=== PATIENT | male | born 1935 | race Two or more races ===

== ENCOUNTER 2018-04-11 17:48 | Emergency (ER) | payer MEDICARE ==
[~2018-04-11] VITALS: Ht 177.8 cm; Wt 90.7 kg
[2018-04-11] MEDS ORDERED: Cefepime HCl 1 GM in NS 55 ML IV SCH (18:15)
--- NOTE | 2018-04-11 18:38 | Diagnostic Imaging Report ---
EXAM: XR Chest, 1 View CLINICAL HISTORY: SOB TECHNIQUE: Frontal view of the chest. COMPARISON: No relevant prior studies available. FINDINGS: Lungs: Unremarkable. No consolidation. Pleural space: Unremarkable. No pneumothorax. Heart: Unremarkable. Mild cardiomegaly. Mediastinum: Unremarkable. Bones/joints: Unremarkable. IMPRESSION: No acute cardiopulmonary disease.
[2018-04-11 18:49] LABS: APPEARANCE,URINE CLEAR; BILIRUBIN, URINE NEGATIVE (NEGATIVE); GLUCOSE, URINE (UA) NEGATIVE (NEGATIVE); KETONES,URINE 1+ (NEGATIVE); LEUKOCYTE ESTERASE ,URINE 1+ (NEGATIVE); NITRITE,URINE NEGATIVE (NEGATIVE); PH,URINE 5 (4.5-8.0); PROTEIN,URINE 1+ (NEGATIVE); UROBILINOGEN,URINE NORMAL MG/DL (0.0-1.0)
[2018-04-11 18:54] LABS: BASOPHILS % (AUTO) 1.9 % (0.0-2.0); EOSINOPHILS % (AUTO) 0.5 % (0.0-3.0); HEMATOCRIT 41.9 % (42.0-52.0); LYMPHOCYTES % (AUTO) 19.4 % (20.0-45.0); MEAN CORPUSCULAR VOLUME 93 FL (80-99); MONOCYTES % (AUTO) 5.7 % (1.0-10.0); NEUTROPHILS % (AUTO) 72.5 % (45.0-75.0); PLATELET COUNT 196 K/UL (150-450); RED BLOOD COUNT 4.51 M/UL (4.70-6.10); RED CELL DISTRIBUTION WIDTH 13.4 % (11.6-14.8)
[2018-04-11 18:57] LABS: ANION GAP 10 mmol/L (5-15); BLOOD UREA NITROGEN 20 mg/dL (7-18); CALCIUM 8.7 MG/DL (8.5-10.1); CARBON DIOXIDE 25 MMOL/L (21-32); CHLORIDE 111 MMOL/L (98-107); CREATININE 0.9 MG/DL (0.55-1.30); POTASSIUM 4.4 MMOL/L (3.5-5.1); SODIUM 146 MMOL/L (136-145)
[2018-04-11 18:59] LABS: COLOR,URINE YELLOW
[2018-04-11 19:00] VITALS: BP 96/50
[2018-04-11 19:10] LABS: ALANINE AMINOTRANSFERASE 27 U/L (12-78); ALBUMIN 3.4 G/DL (3.4-5.0); ALKALINE PHOSPHATASE 93 U/L (46-116); ASPARTATE AMINO TRANSFERASE 18 U/L (15-37); BILIRUBIN,TOTAL 0.3 MG/DL (0.2-1.0); CKMB < 0.5 NG/ML (0.0-3.6); CREATINE KINASE 61 U/L (26-308); PHOSPHORUS 2.9 MG/DL (2.5-4.9)
[2018-04-11] MEDS ORDERED: TAMSULOSIN HCL0.4 MG ORAL (19:14)
[2018-04-11] MEDS ORDERED: DOCUSATE SODIU100 MG ORAL (19:14)
[2018-04-11] MEDS ORDERED: METOPROLOL TART25 MG ORAL (19:14)
[2018-04-11] MEDS ORDERED: OMEGA 3 1,0001 EACH PO (19:14)
[2018-04-11] MEDS ORDERED: SENNA LAXATIVE8.6 MG PO (19:14)
[2018-04-11] MEDS ORDERED: PLAVIX75 MG ORAL (19:14)
[2018-04-11] MEDS ORDERED: LINZESS290 MCG PO (19:14)
[2018-04-11] MEDS ORDERED: DULCOLAX10 MG RC (19:14)
[2018-04-11] MEDS ORDERED: AMLODIPINE BESYL5 MG ORAL (19:14)
[2018-04-11] MEDS ORDERED: LISINOPRIL40 MG ORAL (19:14)
[2018-04-11] MEDS ORDERED: PROSCAR5 MG ORAL (19:14)
[2018-04-11] MEDS ORDERED: PENLAC6.6 M1 TP (19:14)
[2018-04-11] MEDS ORDERED: LACTULOSE20 GM/301 ORAL (19:14)
[2018-04-11] MEDS ORDERED: BUPROPION XL150 MG ORAL (19:14)
[2018-04-11] MEDS ORDERED: LIPITOR40 MG ORAL (19:14)
[2018-04-11] MEDS ORDERED: FUROSEMIDE40 MG ORAL (19:14)
[2018-04-11] MEDS ORDERED: CENTRUM SILVER1 EAC4 PO (19:14)
[2018-04-11] MEDS ORDERED: ASCORBIC ACID500 MG ORAL (19:14)
[2018-04-11] MEDS ORDERED: MIRTAZAPINE30 MG ORAL (19:14)
[2018-04-11] MEDS ORDERED: MIRALAX17 G2 ORAL (19:14)
[2018-04-11] MEDS ORDERED: COQ1050 MG PO (19:14)
[2018-04-11] MEDS ORDERED: POTASSIUM CHLO10 MEQ ORAL (19:14)
[2018-04-11] MEDS ORDERED: ACETAMINOPHEN325 M1 ORAL (19:14)
[2018-04-11 20:00] VITALS: BP 98/50
[2018-04-11] MEDS ORDERED: Sodium Chloride 500ML 500 ML IV ONE (20:30)
[2018-04-11 21:00] VITALS: BP 91/52
[2018-04-11 21:59] VITALS: BP 101/55
[2018-04-11 23:00] VITALS: BP 102/53
--- NOTE | 2018-04-11 23:09 | Emergency Room Report ---
History of Present Illness General Chief Complaint: Fever Source: EMS Present Illness HPI Patient is an 82-year-old male brought in by EMS after increased generalized weakness. 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 The reportedly had been having bowel movements yesterday. He had not been vomiting. He was noted to have fever up to 102 by EMS. The patient reportedly was in a hot environment. 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 Review of Systems All Other Systems: negative except mentioned in HPI Physical Exam Vital Signs Date Time Temp Pulse Resp B/P (MAP) Pulse Ox O2 Delivery O2 Flow Rate FiO2 04/11/18 17:44 102.1 106 16 127/71 95 Room Air 102.0 General Appearance: obese, Chronically Ill ENT: normal pharynx Neck: full range of motion, supple Respiratory: chest non-tender, lungs clear, normal breath sounds Gastrointestinal: non tender, soft Musculoskeletal: normal inspection Neurologic: normal inspection, alert, oriented x3, responsive, 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 Differential diagnosis included was not limited to anemia, urinary tract infection, electrolyte abnormality, hypothyroidism, myocardial infarction, myasthenia gravis, dehydration, among others. Because of complexity of patient's case laboratory testing and imaging studies were ordered. The laboratory testing showed the normal white blood count. The patient was noted to have a minimal urinary tract infection. The patient was started on IV fluids. He was noted to be somewhat hypotensive initially. Patient was also noted to be febrile. Patient was given IV antibiotics after blood cultures are obtained.This may be related to the environmental heat however this is unclear at this time. Patient was discussed with Dr. Del Valle for [facility] the patient will be transferred for continuity care. Labs Test 04/11/18 18:25 White Blood Count 9.0 K/UL (4.8-10.8) Red Blood Count 4.51 M/UL (4.70-6.10) Hemoglobin 14.0 G/DL (14.2-18.0) Hematocrit 41.9 % (42.0-52.0) Mean Corpuscular Volume 93 FL (80-99) Mean Corpuscular Hemoglobin 31.2 PG (27.0-31.0) Mean Corpuscular Hemoglobin Concent 33.5 G/DL (32.0-36.0) Red Cell Distribution Width 13.4 % (11.6-14.8) Platelet Count 196 K/UL (150-450) Mean Platelet Volume 7.5 FL (6.5-10.1) Neutrophils (%) (Auto) 72.5 % (45.0-75.0) Lymphocytes (%) (Auto) 19.4 % (20.0-45.0) Monocytes (%) (Auto) 5.7 % (1.0-10.0) Eosinophils (%) (Auto) 0.5 % (0.0-3.0) Basophils (%) (Auto) 1.9 % (0.0-2.0) Urine Color Yellow Urine Appearance Clear Urine pH 5 (4.5-8.0) Urine Specific [place] 1.020 (1.005-1.035) Urine Protein 1+ (NEGATIVE) Urine Glucose (UA) Negative (NEGATIVE) Urine Ketones 1+ (NEGATIVE) Urine Occult Blood Negative (NEGATIVE) Urine Nitrite Negative (NEGATIVE) Urine Bilirubin Negative (NEGATIVE) Urine Urobilinogen Normal MG/DL (0.0-1.0) Urine Leukocyte Esterase 1+ (NEGATIVE) Urine RBC 0-2 /HPF (0 - 0) Urine WBC 2-4 /HPF (0 - 0) Urine Squamous Epithelial Cells Few /LPF (NONE/OCC) Urine Bacteria Few /HPF (NONE) Sodium Level 146 MMOL/L (136-145) Potassium Level 4.4 MMOL/L (3.5-5.1) Chloride Level 111 MMOL/L (98-107) Carbon Dioxide Level 25 MMOL/L (21-32) Anion Gap 10 mmol/L (5-15) Blood Urea Nitrogen 20 mg/dL (7-18) Creatinine 0.9 MG/DL (0.55-1.30) Estimat Glomerular Filtration Rate mL/min (>60) Glucose Level 146 MG/DL (74-106) Lactic Acid Level 1.60 mmol/L (0.4-2.0) Calcium Level 8.7 MG/DL (8.5-10.1) Phosphorus Level 2.9 MG/DL (2.5-4.9) Magnesium Level 2.1 MG/DL (1.8-2.4) Total Bilirubin 0.3 MG/DL (0.2-1.0) Aspartate Amino Transf (AST/SGOT) 18 U/L (15-37) Alanine Aminotransferase (ALT/SGPT) 27 U/L (12-78) Alkaline Phosphatase 93 U/L (46-116) Total Creatine Kinase 61 U/L (26-308) Creatine Kinase MB < 0.5 NG/ML (0.0-3.6) Creatine Kinase MB Relative Index 0.8 Troponin I 0.000 ng/mL (0.000-0.056) Total Protein 6.9 G/DL (6.4-8.2) Albumin 3.4 G/DL (3.4-5.0) Globulin 3.5 g/dL Albumin/Globulin Ratio 1.0 (1.0-2.7) EKG Diagnostic Results Rate: tachycardiac - 107 ST Segments: no acute changes Rhythm Strip Diag. Results EP Interpretation: yes Rhythm: NSR, no PVC's, no ectopy Last Vital Signs Date Time Temp Pulse Resp B/P (MAP) Pulse Ox O2 Delivery O2 Flow Rate FiO2 04/11/18 21:59 98.4 85 16 101/55 99 Room Air 98.4 Status: improved Disposition: XFER SHT-TRM HOSP Condition: Serious Referrals: [facility] (PCP) Keenan Garcia MD Apr 11, 2018 23:09
[2018-04-11 23:55] VITALS: BP 111/61
== END 2018-04-11 23:55 | disposition short-term general hospital (02) ==
LOC: EDBD 17:48 → EMR 18:43
DX: R53.1 Weakness (principal); E86.0 Dehydration; I10 Essential (primary) hypertension; I69.354 Hemiplegia and hemiparesis following cerebral infarction affecting left non-dominant side
CPT/HCPCS: 36415; 71045; 80053; 81003; 82550; 82553; 83605; 83735; 84100; 84484; 85025; 96365; 96366; 96368; 99284; J0692; J7040; 96360; 96361